=== PATIENT | male | born 1965 | race African-American/Black ===

== ENCOUNTER 2017-07-12 23:25 | Emergency (ER) | payer OTHER | END 2017-07-13 00:23 | disposition home or self-care (01) | LOC: ER 07-13 00:23 | DX: K08.89 Other specified disorders of teeth and supporting structures (principal); I10 Essential (primary) hypertension; K21.9 Gastro-esophageal reflux disease without esophagitis | CPT/HCPCS: 99283 ==

== ENCOUNTER → 2018-04-02 | Outpatient (CLI) | payer OTHER ==
[2017-07-12 23:45] VITALS: BP 157/86
[~2018-04-02] MED LIST: ACET-704 PO
--- NOTE | 2018-04-02 13:52 | KCIC ---
Five-view lumbar spine and 3 view sacrum dated 04/02/2018. No comparison available. CLINICAL INDICATION: Pain. FINDINGS: Five-view lumbar spine show normal sagittal alignment. Vertebral body heights are maintained. Mild endplate hypertrophic changes throughout. 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 3 view sacrum coccyx show normal bony alignment. No displaced fracture. Mild hypertrophic change of the bilateral SI joint and pubic symphysis. No acute osseous or articular abnormality. IMPRESSION: 1. No acute radiographic abnormality. 2. Mild lower lumbar spondylosis. Electronically signed by: Senthil Fishman MD (04/02/2018 1:49 PM) [id number]
== END | disposition home or self-care (01) ==
LOC: KCIC 12:34
PROVIDERS: ATTEND Physician Assistant Medical
DX: M47.896 Other spondylosis, lumbar region (principal); M53.3 Sacrococcygeal disorders, not elsewhere classified
CPT/HCPCS: 72110; 72220

== ENCOUNTER → 2018-12-11 | Outpatient (CLI) | payer OTHER ==
[2017-07-12 23:45] VITALS: BP 157/86
--- NOTE | 2018-12-11 11:51 | KCIC ---
LUMBAR SPINE WO CONTRAST History: Acute left-sided low back pain. Left sciatica. Tingling and burning down left leg. Technique: Multiplanar, multi sequential MR imaging was performed of the lumbar spine. Comparison: None Findings: Normal vertebral body height and alignment. No fracture. Conus terminates at the normal location. No evidence of nerve root clumping. L1-L2: Minimal posterior disc bulge. No canal or neuroforaminal narrowing. L2-L3: Small posterior disc bulge. Mild right neural foraminal narrowing. No canal narrowing. L3-L4: Minimal posterior disc bulge. Mild facet arthropathy. No canal or neuroforaminal narrowing. L4-L5: Left subarticular recess disc extrusion extending slightly inferiorly. The extrusion contacts the descending left L5 nerve root within the subarticular recess with posterior displacement. No canal narrowing. No neuroforaminal narrowing. L5-S1: Minimal posterior disc bulge. Mild facet arthropathy. No canal or neuroforaminal narrowing. Impression: 1. L4-L5 left subarticular recess disc extrusion contacting and displacing the descending left L5 nerve root. Recommend correlation for left L5 radiculopathy. 2. Mild additional lumbar spondylosis. Electronically signed by: Jd Tanner DO (12/11/2018 11:47 AM) [email or web address]
== END | disposition home or self-care (01) ==
LOC: KCIC MRI 10:02
PROVIDERS: ATTEND Physician Assistant Medical
DX: M51.26 Other intervertebral disc displacement, lumbar region (principal); M48.061 Spinal stenosis, lumbar region without neurogenic claudication; M12.88 Other specific arthropathies, not elsewhere classified, other specified site
CPT/HCPCS: 72148

== ENCOUNTER → 2019-04-03 | Outpatient (CLI) | payer OTHER ==
[2017-07-12 23:45] VITALS: BP 157/86
--- NOTE | 2019-04-03 09:12 | KCIC ---
EXAM: Chest, 2 views. HISTORY: Bronchitis. COMPARISON: None. FINDINGS: 2 views of the chest are obtained. There is no infiltrate, pleural effusion or pneumothorax. The heart is normal in size. IMPRESSION: No acute pulmonary finding. Electronically signed by: Bri Joy MD (04/03/2019 9:10 AM) [facility]
== END | disposition home or self-care (01) ==
LOC: KCIC 08:56
PROVIDERS: ATTEND Physician Assistant Medical
DX: J20.9 Acute bronchitis, unspecified (principal)
CPT/HCPCS: 71046